=== PATIENT | female | born 1965 | race African-American/Black ===

== ENCOUNTER 2017-03-22 15:54 | Emergency (ER) | payer BC ==
[~2017-03-22] VITALS: Ht 165.1 cm; Wt 55.0 kg
[2017-03-22] MEDS ORDERED: MORPHINE SULFATE 4 MG/ML CPJ (NOT FOR IM USE) IV ONE (17:30)
[2017-03-22 20:24] VITALS: BP 116/85
== END 2017-03-22 20:40 | disposition home or self-care (01) ==
LOC: ER 16:19
DX: S80.12XA Contusion of left lower leg, initial encounter (principal); Z88.0 Allergy status to penicillin; X37.1XXA Tornado, initial encounter; Y93.89 Activity, other specified; Y92.89 Other specified places as the place of occurrence of the external cause; Y99.8 Other external cause status
CPT/HCPCS: 72192; 73562; 73610; 73630; 96374; 99284; J2270; Z7610